=== PATIENT | male | born 1940 | race Caucasian/White ===

== ENCOUNTER → 2019-10-08 11:29 | Outpatient (CLI) | payer MEDICARE, OTHER ==
--- NOTE | ~2019-10-08 | ST ---
PATIENT:MAGALY MALONE MEDICAL RECORD: [id number] SEX: M LOCATION:[facility] ORDER #: ADMISSION DATE: 10/08/19 AGE OF PATIENT: 79 REFERRING PHYSICIAN: INTERPRETING PHYSICIAN: TULIO MOORE MD DATE OF SERVICE: 10/08/2019 INDICATION: Angina, shortness of breath, hypertension. He was exercised on standard Lexiscan protocol with 33 mCi of sestamibi injected at peak stress, 11 mCi used previously for rest images. FINDINGS: Gated SPECT reveals preserved ejection fraction at 52% with decreased thickening and brightening throughout the inferior segments. SPECT imaging Cardiolite was used as myocardial perfusion agent. There is a fixed perfusion defect inferiorly compatible with previous inferior myocardial infarction. There is no evidence of reversible ischemia and the remaining segments homogeneous uptake at rest and stress. OVERALL IMPRESSION: This is mildly abnormal, but stable nuclear stress test showing only affects perfusion defect inferiorly. No ongoing ischemic burden. Ejection fraction preserved at 52%. TRANSINT:[id number] Voice Confirmation ID: [id number] DOCUMENT ID: [id number] TULIO MOORE MD CC: JINA DENNY [id number] DICTATION DATE: 10/09/19 1427 CLINICAL AUDIOLOGIST: 10/10/19 0145 DEP CLI 10/08/19 [place] [id number] [place] [id number]
== END | disposition home or self-care (01) ==
LOC: D.HCCARDIO 11:29
PROVIDERS: ATTEND Internal Medicine Interventional Cardiology
DX: R00.2 Palpitations (principal)